=== PATIENT | female | born 1965 | race Caucasian/White ===

== ENCOUNTER → 2016-04-19 | Outpatient (CLI) | payer BC ==
--- NOTE | 2016-04-19 09:45 | MM ---
Reason for exam: screening (asymptomatic). Last mammogram was performed 1 year and 3 months ago. History: Patient had first child at age 35. Physical Findings: A clinical breast exam by your physician is recommended on an annual basis and results should be correlated with mammographic findings. MG Screening Mammo w CAD Bilateral CC and MLO view(s) were taken. Prior study comparison: January 13, 2015, bilateral MG 3d diag mammo w/cad SVETLANA. December 05, 2011, bilateral digital screening mammo w/CAD. There are scattered fibroglandular densities. No significant changes when compared with prior studies. Finding: There are typically benign calcifications in the right breast. There is a chronic nodularity in the right breast. ASSESSMENT: Benign, BI-RAD 2 RECOMMENDATION: Routine screening mammogram of both breasts in 1 year.
--- NOTE | 2016-04-19 09:54 | US ---
EXAMINATION TYPE: US pelvic complete DATE OF EXAM: 04/19/2016 9:24 AM COMPARISON: US on PACS CLINICAL HISTORY: R10.2 Pelvic Pain. Patient stated only has pelvic pain with intercourse; ; prio r endometriosis with surgery for DX; x 1 TECHNIQUE: Transabdominal (TA) Date of LMP: 03/13/2016 EXAM MEASUREMENTS: Uterus: 6.6 x 4.3 x 3.1 cm Endometrial Stripe: 0.4 cm Right Ovary: 2.3 x 1.5 x 1.5 cm Left Ovary: 2.3 x 1.9 x 1.2 cm Findings: 1. Uterus: Anteverted no evidence for uterine mass. 2. Endometrium: thickness is wnl for day 37 LMP 3. Right Ovary: wnl 4. Left Ovary: wnl Color Flow is present in bilateral ovary 5. Bilateral Adnexa: wnl 6. Posterior cul-de-sac: wnl IMPRESSION: Unremarkable study.
== END | disposition home or self-care (01) ==
LOC: RADUSWWP 09:02
PROVIDERS: ATTEND Obstetrics & Gynecology
DX: Z12.31 Encounter for screening mammogram for malignant neoplasm of breast (principal); R10.2 Pelvic and perineal pain
CPT/HCPCS: 76856; G0202

== ENCOUNTER → 2017-09-19 | Outpatient (CLI) | payer BC ==
--- NOTE | 2017-09-19 12:31 | MM ---
Reason for exam: screening (asymptomatic). Last mammogram was performed 1 year and 5 months ago. History: Patient had first child at age 35. Physical Findings: A clinical breast exam by your physician is recommended on an annual basis and results should be correlated with mammographic findings. MG Screening Mammo w CAD Bilateral CC and MLO view(s) were taken. Prior study comparison: April 19, 2016, bilateral MG screening mammo w CAD. January 13, 2015, bilateral MG 3d diag mammo w/cad SVETLANA. There are scattered fibroglandular densities. There is chronic nodularity in the right breast. Possible lobulated nodule, not seen prior to 2016, right breast CC view just lateral to the retroareolar plane. ASSESSMENT: Incomplete: need additional imaging evaluation, BI-RAD 0 RECOMMENDATION: Special view mammogram of the right breast. If lesion persists on supplemental views, image directed ultrasound is recommended. [facility] will attempt to contact patient to return for supplemental views and ultrasound if indicated.
== END | disposition home or self-care (01) ==
LOC: RADMAMWWP 07:09
PROVIDERS: ATTEND Obstetrics & Gynecology
DX: Z12.31 Encounter for screening mammogram for malignant neoplasm of breast (principal)
CPT/HCPCS: 77067

== ENCOUNTER → 2017-10-08 | Outpatient (CLI) | payer BC ==
--- NOTE | 2017-10-09 11:02 | MM ---
Reason for exam: additional evaluation requested from abnormal screening. Last mammogram was performed 1 month ago. History: Patient had first child at age 35. Physical Findings: Nurse did not find any significant physical abnormalities on exam. MG Work Up Mamm w CAD RT CC and MLO view(s) were taken of the right breast. Prior study comparison: September 19, 2017, bilateral MG screening mammo w CAD. April 19, 2016, bilateral MG screening mammo w CAD. Finding: There is a 6 mm circumscribed round mass in the slight lower outer quadrant, anterior position of the right breast, does not completely go away on additional views. These results were verbally communicated with the patient and result sheet given to the patient on 10/08/17. ASSESSMENT: Incomplete: need additional imaging evaluation, BI-RAD 0 RECOMMENDATION: Ultrasound of the right breast.
--- NOTE | 2017-10-09 11:05 | USB ---
Reason for exam: additional evaluation requested from abnormal screening. History: Patient had first child at age 35. US Breast Workup Limited RT Right limited breast ultrasound including focal area of concern, retroareolar and axilla demonstrates a 7 x 4 x 5mm lobular, solid, hypoechoic, suspicious lesion at 8 o'clock for which a biopsy is recommended and a 3 x 2 x 3mm oval, cystic, benign lesion at 9 o'clock. Scanned 6-9 o'clock and axilla. No axillary lymphadenopathy. These results were verbally communicated with the patient and result sheet given to the patient on 10/08/17. ASSESSMENT: Suspicious, BI-RAD 4 RECOMMENDATION: Surgical consultation and ultrasound core biopsy of the right breast. Called Dr. Gar with mammographic findings and has scheduled an appointment for the patient for 10/14/17 at 12:[address] Harp. PRELIMINARY REPORT CALLED AND FAXED TO DR. HARP ON 10/09/17.
== END | disposition home or self-care (01) ==
LOC: RADMAMWWP 15:34
PROVIDERS: ATTEND Obstetrics & Gynecology
DX: R92.8 Other abnormal and inconclusive findings on diagnostic imaging of breast (principal)
CPT/HCPCS: 77065

== ENCOUNTER → 2017-10-16 | Day surgery (SDC) | payer BC ==
[2017-10-16 12:19] VITALS: RESP 12; TEMP 98.7
[2017-10-16 14:10] VITALS: BP 139/90; PULSE 72
--- NOTE | 2017-10-16 16:08 | USB ---
EXAMINATION TYPE: US biopsy breast VAD RT DATE OF EXAM: 10/16/2017 CLINICAL HISTORY: R92.8 Abn mammo. Abnormal right breast ultrasound TECHNIQUE: Ultrasound guided core biopsy of right breast. COMPARISON: Ultrasound 10/08/2017, mammogram 10/08/2017 FINDINGS: The procedure of ultrasound guided core biopsy was explained to the patient. Benefits, alt ernatives, and risks were discussed. Specific discussion regarding risk of bleeding, vacuum-assisted versus nonvacuum assisted devices and alternatives were discussed. All questions were answered. An i nformed consent was then obtained. Timeout was performed. The patient was placed in supine positioning for imaging and for the procedure. The overlying skin w as prepped and draped in usual sterile fashion. Lidocaine with epinephrine buffered with bicarbonate was used as anesthetic into the skin and subcutaneous tissue up to area of concern in the right [address]. A single bryan was made with surgical scalpel. Under ultrasound guidance, a 12-gauge vacuum assisted biopsy gun device was used to obtain [address]. The ultrasound lesion appeared to be completely resected images and additional biopsies were no t performed. Following this, a biopsy clip was left in biopsy site. The patient tolerated the procedure well without any immediate complication. Patient was transferred to mammography for postprocedure mammogram. 2 images were obtained. The core marker is in the expect ed region for the ultrasound-guided core biopsy. This appears to correspond to an area within the rig ht breast on mammography as well. The patient was kept in the radiology department for short stay after the procedure and then discharg ed home in stable condition. IMPRESSION: Successful vacuum assisted ultrasound-guided core biopsy right breast. Recommendations: 1. Recommendations are pending pathology results.
== END | disposition home or self-care (01) ==
LOC: RADUSWWP 11:57
PROVIDERS: ATTEND Surgery
DX: N60.81 Other benign mammary dysplasias of right breast (principal); Z88.1 Allergy status to other antibiotic agents
CPT/HCPCS: 88305; 77065; 19083; A4648

== ENCOUNTER → 2018-04-24 | Outpatient (CLI) | payer BC ==
--- NOTE | 2018-04-25 11:45 | USB ---
Reason for exam: follow-up at short interval from prior study. History: Patient had first child at age 35. Benign US biopsy breast VAD RT of the right breast, October 16, 2017. Physical Findings: Nurse did not find any significant physical abnormalities on exam. US Breast RT Right complete breast ultrasound includes all four quadrants, the retroareolar region and axilla. Finding demonstrates a 0.3 x 0.3 x 0.2cm oval, hypoechoic lesion too small to characterize at 5 o'clock, a 0.4 x 0.2 x 0.4cm oval, cystic cluster at 8 o'clock and a 0.9 x 0.6 x 0.6cm oval, irregular, hypoechoic lesion with clip at 8 o'clock. These results were verbally communicated with the patient and result sheet given to the patient on 04/24/18. ASSESSMENT: Benign, BI-RAD 2 RECOMMENDATION: Return to routine screening mammogram schedule for both breasts. Back on schedule.
== END | disposition home or self-care (01) ==
LOC: RADUSWWP 08:16
PROVIDERS: ATTEND Obstetrics & Gynecology
DX: R92.8 Other abnormal and inconclusive findings on diagnostic imaging of breast (principal)

== ENCOUNTER → 2018-10-16 | Outpatient (CLI) | payer BC ==
--- NOTE | 2018-10-16 10:18 | MM ---
Reason for exam: screening (asymptomatic). Last mammogram was performed 1 year ago. History: Patient had first child at age 35. Benign US biopsy breast VAD RT of the right breast, October 16, 2017. Physical Findings: A clinical breast exam by your physician is recommended on an annual basis and results should be correlated with mammographic findings. MG Screening Mammo w CAD Bilateral CC and MLO view(s) were taken. Prior study comparison: October 16, 2017, right breast MG diagnostic mammo RT wo CAD. October 08, 2017, right breast MG work up mamm w CAD RT. The breast tissue is heterogeneously dense. This may lower the sensitivity of mammography. Benign appearing bilateral calcifications. No suspicious abnormality. Right biopsy marker. No significant changes when compared with prior studies. ASSESSMENT: Benign, BI-RAD 2 RECOMMENDATION: Routine screening mammogram of both breasts in 1 year.
== END | disposition home or self-care (01) ==
LOC: RADMAMWWP 07:10
PROVIDERS: ATTEND Obstetrics & Gynecology
DX: Z12.31 Encounter for screening mammogram for malignant neoplasm of breast (principal)
CPT/HCPCS: 77067

== ENCOUNTER 2019-04-17 07:14 | Day surgery (SDC) | payer BC ==
[2019-04-15 18:08] VITALS: BMI 26.6
[~2019-04-17 07:14] MED LIST: LACTATED RINGERS 1,000 ML IV SCH; LIDOCAINE 1% (10MG/ML) FOR IV START INTRADERMA PRN
[2019-04-17 07:28] VITALS: TEMP 97.4
[2019-04-17 07:42] LABS: Glucose,Whole Blood 139 mg/dL (75-99)
[2019-04-17] MEDS ORDERED: PROPOFOL 10 MG/ML 20 ML VIAL IV ONE (08:25)
--- NOTE | 2019-04-17 08:42 | P.PCN ---
Date of Procedure: 04/17/19 Procedure(s) Performed: BRIEF HISTORY: Patient is a 54-year-old pleasant white female scheduled for an elective colonoscopy as a part of screening for colorectal neoplasia. PROCEDURE PERFORMED: Colonoscopy. PREOPERATIVE DIAGNOSIS: Screening for colon cancer. IV sedation per Anesthesia. PROCEDURE: After informed consent was obtained, the patient, was brought into the endoscopy unit. IV sedation was administered by Anesthesia under continuous monitoring. Digital rectal examination was normal. Initially the Olympus CF-160 flexible video colonoscope was then inserted in the rectum, gradually advanced into the cecum without any difficulty. Careful examination was performed as the scope was gradually being withdrawn. Ileocecal valve and the appendiceal orifice were visualized and appeared normal. Prep was excellent. Mucosa of the cecum, ascending colon, transverse colon, descending colon, sigmoid colon, and rectum appeared normal. Retroflexion was performed in the rectum and no lesions were seen. scattered sigmoid diverticulosis.The patient tolerated the procedure well. IMPRESSION: Normal-appearing colon from rectum to cecum with no evidence of colorectal neoplasia. Scattered sigmoid diverticulosis. RECOMMENDATIONS: Findings of this examination were discussed with the patient as well as a family. She was advised to have a repeat screening colonoscopy in 10 years. 54
[2019-04-17 09:02] VITALS: BP 111/72; PULSE 61; RESP 18
== END 2019-04-17 09:24 | disposition home or self-care (01) ==
LOC: ORWHC2ENDO 07:14
PROVIDERS: ATTEND Internal Medicine Gastroenterology
DX: Z12.11 Encounter for screening for malignant neoplasm of colon (principal); K57.30 Diverticulosis of large intestine without perforation or abscess without bleeding; J45.909 Unspecified asthma, uncomplicated; E11.9 Type 2 diabetes mellitus without complications; Z87.19 Personal history of other diseases of the digestive system; Z79.1 Long term (current) use of non-steroidal anti-inflammatories (NSAID); Z79.899 Other long term (current) drug therapy; Z88.1 Allergy status to other antibiotic agents; Z79.51 Long term (current) use of inhaled steroids
CPT/HCPCS: 81025; J2704; G0121; 45378

== ENCOUNTER → 2019-10-22 | Outpatient (CLI) | payer BC ==
--- NOTE | 2019-10-23 15:02 | MM ---
Reason for exam: screening (asymptomatic). Last mammogram was performed 1 year ago. History: Patient had first child at age 35. Benign US biopsy breast VAD RT of the right breast, October 16, 2017. Physical Findings: A clinical breast exam by your physician is recommended on an annual basis and results should be correlated with mammographic findings. MG Screening Mammo w CAD Bilateral CC and MLO view(s) were taken. Prior study comparison: October 16, 2018, bilateral MG screening mammo w CAD. October 16, 2017, right breast MG diagnostic mammo RT wo CAD. There are scattered fibroglandular densities. Previous mammotome biopsy in the right breast. ASSESSMENT: Benign, BI-RAD 2 RECOMMENDATION: Routine screening mammogram of both breasts in 1 year.
== END | disposition home or self-care (01) ==
LOC: RADMAMWWP 07:09
PROVIDERS: ATTEND Obstetrics & Gynecology
DX: Z12.31 Encounter for screening mammogram for malignant neoplasm of breast (principal)
CPT/HCPCS: 77067

== ENCOUNTER → 2021-04-04 | Outpatient (CLI) | payer BC ==
--- NOTE | 2021-04-04 13:33 | MR ---
EXAMINATION TYPE: MR shoulder LT wo con DATE OF EXAM: 04/04/2021 COMPARISON: None HISTORY: 56-year-old female M25.512, Left shoulder pain TECHNIQUE: Multiplanar, multisequence imaging of the left shoulder is performed without contrast. FINDINGS: There is some increased intrasubstance signal within the intracapsular portion of the long head bicep s tendon suggesting tendinosis. The intracapsular portion remains appropriately situated along the bi cipital groove. The subscapularis tendon is intact. Moderate to severe degenerative change at the acromioclavicular joint with joint space narrowing, hyp ertrophic spurring, capsular swelling, and mild periarticular edema. Inferior spurring encroaches ont o the subacromial space but does not have significant mass effect onto the underlying rotator cuff. Heterogeneous signal in supraspinatus tendon. The anterior to mid fibers are very thin with some volu me loss measuring 1.5 cm long and 1.6 cm AP. No full-thickness tear is seen. Trace fluid within the subacromial/subdeltoid bursa. The infraspinatus tendon is intact. No atrophy of the rotator cuff musculature. Physiologic glenohumeral joint fluid. There is a through thickness defect along the anterior superior quadrant involving the labral chondral junction likely normal variation with a sublabral foramen. Th e humeral joint otherwise appears intact. No Hill-Sachs deformity or os acromiale. No suspicious bone marrow replacement. IMPRESSION: 1. Supraspinatus tendinosis. The anterior to mid fibers are very thin suggesting a partial-thickness tear measuring 1.5 x 1.6 cm. No full-thickness rotator cuff tear or muscle atrophy. 2. Moderate to severe AC joint OA. 3. Mild intracapsular long head biceps tendinosis.
== END | disposition home or self-care (01) ==
LOC: RADMRIMAIN 10:58
PROVIDERS: ATTEND Orthopaedic Surgery
DX: M19.012 Primary osteoarthritis, left shoulder (principal); M67.814 Other specified disorders of tendon, left shoulder

== ENCOUNTER → 2021-04-28 | Outpatient (CLI) | payer BC ==
[2021-04-28 19:48] LABS: Basophils # (A) 0.09 X 10*3/uL (0.00-0.10); Basophils % (A) 1.1 %; Eosinophils # (A) 0.26 X 10*3/uL (0.04-0.35); Eosinophils % (A) 3.1 %; HCT 45.1 % (37.2-46.3); HGB 14.3 g/dL (12.0-15.0); Lymphocytes # (A) 2.97 X 10*3/uL (0.90-5.00); Lymphocytes % (A) 35.8 %; MCH 27.9 pg (27.0-32.0); MCHC 31.7 g/dL (32.0-37.0); MCV 87.9 fL (80.0-97.0); Mean Platelet Volume 11.4 fL (9.5-12.2); Monocytes # (A) 0.54 X 10*3/uL (0.20-1.00); Monocytes % (A) 6.5 %; Neutrophils # (A) 4.41 X 10*3/uL (1.80-7.70); Neutrophils % (A) 53.3 %; Platelet Count 312 X 10*3/uL (140-440); RBC 5.13 X 10*6/uL (4.10-5.20); RDW 12.4 % (11.5-14.5); WBC 8.29 X 10*3/uL (4.50-10.00)
[2021-04-28 19:55] LABS: Anion Gap 12.9 mmol/L (10.00-18.00); Carbon Dioxide 23.1 mmol/L (20.0-27.5); Potassium 4.1 mmol/L (3.5-5.5)
== END | disposition home or self-care (01) ==
LOC: LABPAT 12:36
PROVIDERS: ATTEND Orthopaedic Surgery
DX: Z01.818 Encounter for other preprocedural examination (principal); M75.41 Impingement syndrome of right shoulder
CPT/HCPCS: 80051; 85025; 93005

== ENCOUNTER → 2021-05-01 | Outpatient (CLI) | payer BC ==
--- NOTE | 2021-05-01 14:10 | MR ---
EXAMINATION TYPE: MR shoulder RT wo con DATE OF EXAM: 05/01/2021 COMPARISON: None HISTORY: 56-year-old female M25.511, Right shoulder pain TECHNIQUE: Multiplanar, multisequence imaging of the right shoulder is performed without contrast. FINDINGS: Long biceps tendon appears intact and appropriately particularly along the bicipital groove . Mild tenosynovial fluid is noted. Heterogeneity of the subscapularis tendon without discrete tear. There is moderate to severe degenerative joint space narrowing with marginal spurring and capsular hy pertrophy as well as joint effusion at the acromial clavicular joint. No significant mass effect on t he underlying myotendinous junction of the supraspinatus. There is trace fluid within the subacromial bursa. There is mild thickening of the coracohumeral liga ment up to 5 mm. No abnormal thickening of the axillary recess or sukumar soft tissue replacement in th e rotator cuff interval. Bursal sided fraying of the supraspinatus tendon. Additional deeper articular sided tear of the mid t o posterior supraspinatus tendon fibers measuring 8 mm x 8 mm, refer to coronal image 12 and sagittal image 21. No discrete full-thickness extension is identified. Infraspinatus tendon appears intact. No atrophy of the rotator cuff musculature. The glenohumeral joint appears intact. Possible subtle tear of the superior aspect of the posterior l abrum, reference axial image 20. No paralabral cyst. No significant glenohumeral joint effusion. No Hill-Sachs deformity or os acromiale. Patchy red marrow is present and can be seen in setting of anemia, obesity, smoking, chronic disease. IMPRESSION: 1. Rotator cuff tendinosis with some bursal sided fraying of the supraspinatus tendon. 2. In addition, there is a deep articular sided tear of the mid to posterior supraspinatus tendon (8 x 8 mm). No full-thickness extension is identified. 3. Some thickening of the coracohumeral ligament is nonspecific. Consider a mild biceps sprain. 4. Moderate to severe AC joint OA. By MRI, no appreciable impingement onto the underlying cuff. Corre late for any pain with dynamic maneuvers. 5. Unable to exclude a tiny tear of the superior aspect of the posterior labrum.
== END | disposition home or self-care (01) ==
LOC: RADMRIMAIN 11:02
PROVIDERS: ATTEND Orthopaedic Surgery
DX: M19.011 Primary osteoarthritis, right shoulder (principal); M75.111 Incomplete rotator cuff tear or rupture of right shoulder, not specified as traumatic; M67.813 Other specified disorders of tendon, right shoulder; M71.811 Other specified bursopathies, right shoulder

== ENCOUNTER 2021-05-11 05:47 | Day surgery (SDC) | payer BC ==
[2021-05-09 16:05] VITALS: BMI 28.3
--- NOTE | 2021-05-10 15:48 | HP ---
HISTORY AND PHYSICAL DATE OF SURGERY: 05/11/2021 Alysa Alcazar is a 56-year-old patient seen with progressive left shoulder pain. We discussed options for treatment. She elected to proceed with left shoulder arthroscopy. Consent was obtained. PAST MEDICAL HISTORY: Asthma, [id number] diabetes. PAST SURGICAL HISTORY: section, tonsillectomy. DAILY MEDICATIONS: Metformin. ALLERGIES: ERYTHROMYCIN. SOCIAL HISTORY: She denies current tobacco use. PHYSICAL EVALUATION OF THE LEFT SHOULDER: Flexion is 90 degrees, abduction 70 degrees, external rotation zero degrees. Tenderness along the anterolateral acromion and rotator cuff insertion. Impingement is positive at 70. Drop-arm sign is positive. Cross-body adduction sign is positive. Distal neurovascular exam is intact. Radiographs of the left shoulder: Type 2 acromion, severe osteoarthritis of the acromioclavicular joint and cystic appearance of the tuberosity. MRI left shoulder: Severe osteoarthritis of the acromioclavicular joint with partial rotator cuff tear. IMPRESSION: 1. Left shoulder impingement with partial rotator cuff tear. 2. Left shoulder acromioclavicular joint osteoarthritis. PLAN: Left shoulder arthroscopy with subacromial decompression, Alfonso procedure, possible arthroscopic rotator cuff repair and debridement. MMODL / IJN: [id number] /
[2021-05-11] MEDS ORDERED: LIDOCAINE 1% (10MG/ML) FOR IV START INTRADERMA PRN (05:59)
[2021-05-11] MEDS ORDERED: LACTATED RINGERS 1,000 ML IV SCH (05:59)
[2021-05-11] MEDS ORDERED: ONDANSETRON 4 MG/2 ML VIAL IVP ONE (05:59)
[2021-05-11] MEDS ORDERED: DEXAMETHASONE SOD PHOSPHATE 4 MG/ML 1 ML VIAL IV ONE (05:59)
[2021-05-11] MEDS ORDERED: MIDAZOLAM 2 MG/2 ML VIAL IV PRN (05:59)
[2021-05-11 06:48] LABS: Glucose,Whole Blood 134 mg/dL (75-99)
[2021-05-11] MEDS ORDERED: HYDROmorphone 0.5 MG/0.5 ML SYRINGE IVP PRN (07:00)
[2021-05-11] MEDS ORDERED: DEXAMETHASONE SOD PHOSPHATE 4 MG/ML 1 ML VIAL ONE (07:55)
[2021-05-11] MEDS ORDERED: LIDOCAINE 1% INJ 10MG/ML (20 ML MDV) ONE (07:55)
[2021-05-11] MEDS ORDERED: fentaNYL (PF) 50 MCG/ML 2 ML AMP ONE (07:55)
[2021-05-11] MEDS ORDERED: NEOSTIGMINE 1 MG/ML 10 ML VIAL ONE (07:55)
[2021-05-11] MEDS ORDERED: ROPIVACAINE 5 MG/ML 30 ML VIAL ONE (07:55)
[2021-05-11] MEDS ORDERED: MIDAZOLAM 2 MG/2 ML VIAL ONE (07:55)
[2021-05-11] MEDS ORDERED: ROCURONIUM 10 MG/ML (5 ML VIAL) IV ONE (07:55)
[2021-05-11] MEDS ORDERED: GLYCOPYRROLATE 0.2 MG/ML 2 ML VIAL ONE (07:55)
[2021-05-11] MEDS ORDERED: SUCCINYLCHOLINE CHLORIDE 100 MG/5 ML SYR IV ONE (07:55)
[2021-05-11] MEDS ORDERED: PROPOFOL 10 MG/ML 20 ML VIAL IV ONE (07:55)
--- NOTE | 2021-05-11 09:31 | P.OP ---
Date of Procedure: 05/11/21 Preoperative Diagnosis: Left shoulder impingement Postoperative Diagnosis: 1. Left shoulder rotator cuff tear 2. Left shoulder impingement 3. Left shoulder adhesions Procedure(s) Performed: 1. Left shoulder arthroscopic rotator cuff repair 2. Left shoulder arthroscopic subacromial decompression 3. Left shoulder arthroscopic lysis of adhesions Implants: 15.5 Arthrex swivel lock anchor Anesthesia: GETA, regional (Interscalene block) Surgeon: Rodrick Cancino Hemodialysis Patient Care Specialist #1: Urbano Shrestha Estimated Blood Loss (ml): 11 Pathology: none sent Condition: stable Disposition: PACU Indications for Procedure: 56-year-old patient seen with progressive left shoulder pain. After having treatment options discussed, she elected to proceed with arthroscopy. Operative Findings: Seen description of procedure Description of Procedure: Patient underwent an interscalene block by department of anesthesia. The patient was then taken to the operative suite. The patient underwent a general anesthetic by the department of anesthesia. The patient was placed into a lateral position and secured. There was appropriate padding of the bony prominence. Left shoulder was then prepped and draped in normal sterile orthopedic fashion. We placed the extremity in 10 pounds of longitudinal traction. A posterior incision was now made for a posterior working portal site. The trocar and cannula were inserted into the glenohumeral joint. Arthroscopy was initiated. Spinal needle was now inserted anteriorly, to ascertain the anterior working portal site. An incision was now made in that area, a trocar was inserted followed by a probe. There was some mild superficial fraying of the anterior labrum. There was abundant adhesions noted along the anterior superior aspect of the shoulder. The labrum was stable. There were grade 1 chondromalacia changes diffusely about the shoulder joint. The biceps tendon and anchor were both stable. I debrided out the superficial labral tear with a motorized shaver. I did perform a limited lysis of adhesions. At this point instruments removed from glenohumeral joint. Utilizing the posterior working portal site, the trocar and cannula were inserted into the subacromial space. Arthroscopy initiated. I made an incision 2 fingerbreadths lateral to the acromion. I introduced my trocar followed by my ArthroCare ablator. I now began ablating thick subacromial bursal tissue, which exposed the undersurface of the anterior acromion. There was diminished subacromial space. There was a very prominent anterior acromion. A motorized bur was introduced and a subacromial decompression was performed. I also excised some osteophytes off the inferior aspect of the distal clavicle. The AC joint was visualized and noted to be fairly moderately arthritic. I did not think enough toward a Alfonso procedure. I turned my attention to the rotator cuff tendon. There was a full-thickness perforation along the distal supraspinatus measuring about 1 cm. I debrided the margins getting down to stable tendon tissue. The defect measured 1.5 cm but it was freely mobile over the footprint. I abraded the footprint with a motorized bur. I passed 2 everted mattress sutures through good bites of rotator cuff tendon. I punched along the footprint area for insertion of an anchor. All 4 limbs of suture were now passed through the eyelet of a 5.5 Arthrex swivel lock anchor. I placed the eyelet into the pre-punch hole. I held that in position while Willard MAGALLANES tensioned all 4 suture limbs and deployed anchor with good fixation noted. All residual suture limbs were now clipped. We had good compression of the tendon along the entire footprint. Instruments now removed from the portal sites. All portal sites were approximated with nylon suture. Sterile dressings were applied followed by a shoulder sling. Urbano MAGALLANES assisted in this complex case. The patient was awakened, transferred to a bed, and taken to recovery in stable condition.
[2021-05-11 09:34] VITALS: TEMP 97
[2021-05-11 09:48] LABS: Glucose,Whole Blood 162 mg/dL (75-99)
[2021-05-11 10:34] VITALS: RESP 16
[2021-05-11] MEDS ORDERED: HYDROcodone/APAP 7.5-325MG 1 EACH TAB ONE (10:44)
[2021-05-11] MEDS ORDERED: HYDROcodone/APAP 7.5-325MG 1 EACH TAB PO ONE (10:46)
[2021-05-11 11:02] VITALS: BP 125/74; PULSE 84
--- NOTE | 2021-05-12 06:21 | P.ANPRN ---
Procedure Note - Anesthesia - Nerve Block Performed Left Interscalene Single Time Out Performed: Yes Date of Procedure: 05/11/21 Procedure Start Time: Procedure Stop Time: Location of Patient: PreOp Indication: Acute Post-Operative Pain, Requested by Surgeon Sedation Type: Sedate with meaningful contact maintained Preparation: Sterile Prep Position: Supine Needle Types: Pajunk Needle Gauge: 21 Ultrasound used to visualize needle placement: Yes Ultrasound used to observe medication spread: Yes Blood Aspirated: No Pain Paresthesia on Injection Noted: No Resistance on Injection: Normal Image Stored and Saved: Yes Events: Uneventful and Well Tolerated (ropi .5% 20cc plus dexamethasone 4mg)
== END 2021-05-11 11:26 | disposition home or self-care (01) ==
LOC: OR 05:47
PROVIDERS: ATTEND Orthopaedic Surgery
DX: M75.102 Unspecified rotator cuff tear or rupture of left shoulder, not specified as traumatic (principal); M25.812 Other specified joint disorders, left shoulder; M75.02 Adhesive capsulitis of left shoulder; E11.9 Type 2 diabetes mellitus without complications; J45.909 Unspecified asthma, uncomplicated; Z98.891 History of uterine scar from previous surgery; Z98.890 Other specified postprocedural states; Z90.49 Acquired absence of other specified parts of digestive tract; Z79.84 Long term (current) use of oral hypoglycemic drugs; Z88.1 Allergy status to other antibiotic agents
CPT/HCPCS: 64415; 76942; 29826; 29827; C1713; C1894; J2250; J1100; J2710; J2405; J0690; J2001; J3010; J2795; J0330; J2704; J1170

== ENCOUNTER 2021-08-24 07:16 | Day surgery (SDC) | payer BC ==
[2021-08-22 15:44] VITALS: BMI 27.6
--- NOTE | 2021-08-23 14:29 | HP ---
HISTORY AND PHYSICAL REASON FOR ADMISSION: Surgery 08/24/2021 HISTORY OF PRESENT ILLNESS: Alysa Alcazar is a 56-year-old patient seen with progressive right shoulder pain. We discussed options for treatment. She elected to proceed with right shoulder arthroscopy. Consent was obtained. PAST MEDICAL HISTORY: [id number] diabetes, asthma. PAST SURGICAL HISTORY: section, left shoulder arthroscopy, tonsillectomy. DAILY MEDICATIONS: Metformin, ibuprofen. ALLERGIES: ERYTHROMYCIN. SOCIAL HISTORY: She denies tobacco use. PHYSICAL EVALUATION OF THE RIGHT SHOULDER: Flexion is 90 degrees, abduction is 80 degrees. External rotation 0, tenderness along the anterior lateral acromion rotator cuff insertion site. Impingement positive 80 degrees. Drop-arm sign is positive. Distal neurovascular exam is intact. RADIOGRAPHS: Radiographs of the right shoulder revealed a type 2 acromion evidence for acromioclavicular joint osteoarthritis and cystic changes of the tuberosity. MRI right shoulder partial rotator cuff tear, acromioclavicular joint osteoarthritis. IMPRESSION: 1. Right shoulder impingement with partial rotator cuff tear. 2. Right shoulder acromioclavicular joint osteoarthritis. 3. [id number]-opcncdevg diabetes. PLAN: Right shoulder arthroscopy, subacromial decompression, Alfonso procedure, possible arthroscopic rotator cuff repair and debridement. MMODL / IJN: [id number] /
[~2021-08-24 07:16] MED LIST changes: +DEXAMETHASONE SOD PHOSPHATE 4 MG/ML 1 ML VIAL IV ONE; +HYDROmorphone 0.5 MG/0.5 ML SYRINGE IVP PRN; -LIDOCAINE 1% (10MG/ML) FOR IV START INTRADERMA PRN; +ONDANSETRON 4 MG/2 ML VIAL IVP ONE
[2021-08-24 08:06] LABS: Glucose,Whole Blood 125 mg/dL (75-99)
[2021-08-24] MEDS ORDERED: MIDAZOLAM 2 MG/2 ML VIAL IVP ONE (08:36)
[2021-08-24 08:48] VITALS: RESP 16
[2021-08-24] MEDS ORDERED: PROPOFOL 10 MG/ML 20 ML VIAL IV ONE (09:23)
[2021-08-24] MEDS ORDERED: fentaNYL (PF) 50 MCG/ML 2 ML AMP ONE (09:23)
[2021-08-24] MEDS ORDERED: DEXAMETHASONE SOD PHOSPHATE 4 MG/ML 1 ML VIAL ONE (09:23)
[2021-08-24] MEDS ORDERED: SUCCINYLCHOLINE CHLORIDE 100 MG/5 ML SYR IV ONE (09:23)
[2021-08-24] MEDS ORDERED: LIDOCAINE 2% INJ 20 MG/ML (2 ML VIAL) ONE (09:23)
[2021-08-24] MEDS ORDERED: ROPIVACAINE 5 MG/ML 30 ML VIAL ONE (09:23)
[2021-08-24] MEDS ORDERED: MIDAZOLAM 2 MG/2 ML VIAL ONE (09:23)
--- NOTE | 2021-08-24 10:44 | P.OP ---
Date of Procedure: 08/24/21 Preoperative Diagnosis: Right shoulder impingement Postoperative Diagnosis: 1. Right shoulder rotator cuff tear 2. Right shoulder impingement 3. Right shoulder partial long head biceps tendon tear 4. Right shoulder adhesions Procedure(s) Performed: 1. Right shoulder arthroscopic rotator cuff repair 2. Right shoulder arthroscopic subacromial decompression 3. Right shoulder arthroscopic biceps tenotomy Implants: 15.5 Arthrex swivel lock anchor Anesthesia: GETA, regional (Interscalene block) Surgeon: Rodrick Cancino Electrolog Operator #1: Urbano Shrestha Estimated Blood Loss (ml): 6 Pathology: none sent Condition: stable Disposition: PACU Indications for Procedure: 56-year-old patient seen with progressive right shoulder pain. After treatment options were discussed, she elected to proceed with arthroscopy. Operative Findings: see description of procedure Description of Procedure: Patient underwent an interscalene block by department of anesthesia. The min ent was then taken to the operative suite. The patient underwent a general anesthetic by the department of anesthesia. The patient was placed into a lateral position and secured. There was appropriate padding of the bony prominence. Right shoulder was then prepped and draped in normal sterile orthopedic fashion. We placed the extremity in 10 pounds of longitudinal traction. A posterior incision was now made for a posterior working portal site. The trocar and cannula were inserted into the glenohumeral joint. Arthroscopy was initiated. Spinal needle was now inserted anteriorly, to ascertain the anterior working portal site. An incision was now made in that area, a trocar was inserted followed by a probe. There was some partial tearing and hyperemia involving the long head biceps tendon. There were grade 1 chondromalacia changes of the glenohumeral joint with no tears. There was some adhesions noted throughout the glenohumeral joint. I performed an arthroscopic biceps tenotomy. I held off on lysing adhesions given the history of possible rotator cuff tear. Instruments were now removed from glenohumeral joint. Utilizing the posterior working portal site, the trocar and cannula were inserted into the subacromial space. Arthroscopy initiated. I made an incision 2 fingerbreadths lateral to the acromion. I introduced my trocar followed by my ArthroCare ablator. I now began ablating thick subacromial bursal tissue, which exposed the undersurface of the anterior acromion. There was diminished subacromial space. There was a very prominent anterior acromion. A motorized bur was introduced and a subacromial decompression was performed. I also excised some osteophytes off the inferior aspect of the distal clavicle. The AC joint was visualized and noted to be moderately arthritic, I did not think enough toward a Alfonso procedure. I turned my attention to the rotator cuff. There was significant partial tearing along the distal supraspinatus tendon. Upon probing the area noted a full-thickness perforation. I debrided the margins getting down to stable tendon tissue. I introduced my motorized bur and abraded the footprint area, getting some petechial bleeding. I now with the assistance of Willard MAGALLANES passed 2 everted mattress suture through good bites of rotator cuff tendon. I now punched hole in the footprint area for insertion of an anchor. All 4 limbs of suture were passed through the eyelet of a 5.5 Arthrex swivel lock anchor. I placed the eyelet into the pre-punch hole. I held it in position while Willard MAGALLANES tensioned all 4 suture limbs and deployed the anchor with good fixation noted. All residual suture limbs were now clipped. We had good compression of the tendon along the entire footprint. I decided ultimately not to lysing adhesions given the fact that she will be immobilized postoperatively for rotator cuff repair. Instruments now removed from the portal sites. All portal sites were approximated with nylon suture. Sterile dressings were applied followed by a shoulder sling. Urbano MAGALLANES assisted in this case. The patient was awakened, transferred to a bed, and taken to recovery in stable condition.
[2021-08-24 10:55] VITALS: TEMP 97
[2021-08-24] MEDS ORDERED: HYDROcodone/APAP 7.5-325MG 1 EACH TAB ONE (11:53)
[2021-08-24] MEDS ORDERED: HYDROcodone/APAP 7.5-325MG 1 EACH TAB PO ONE (11:55)
[2021-08-24 12:18] VITALS: BP 118/71; PULSE 79
--- NOTE | 2021-08-24 19:19 | P.ANPRN ---
Procedure Note - Anesthesia - Nerve Block Performed Right Interscalene Single Time Out Performed: Yes Date of Procedure: 08/24/21 Procedure Start Time: 08:35 Procedure Stop Time: 08:39 Location of Patient: PreOp Indication: Acute Post-Operative Pain, Requested by Surgeon Sedation Type: Sedate with meaningful contact maintained Preparation: Sterile Prep Position: Supine Needle Types: Pajunk Needle Gauge: 21 Ultrasound used to visualize needle placement: Yes Ultrasound used to observe medication spread: Yes Blood Aspirated: No Pain Paresthesia on Injection Noted: No Resistance on Injection: Normal Image Stored and Saved: Yes Events: Uneventful and Well Tolerated (ropi .5% 20cc plus dexamethasone 4mg)
== END 2021-08-24 12:46 | disposition home or self-care (01) ==
LOC: OR 07:16
PROVIDERS: ATTEND Orthopaedic Surgery
DX: M75.101 Unspecified rotator cuff tear or rupture of right shoulder, not specified as traumatic (principal); M25.811 Other specified joint disorders, right shoulder; S46.111A Strain of muscle, fascia and tendon of long head of biceps, right arm, initial encounter; X58.XXXA Exposure to other specified factors, initial encounter; M94.211 Chondromalacia, right shoulder; M75.01 Adhesive capsulitis of right shoulder; E11.9 Type 2 diabetes mellitus without complications; J45.909 Unspecified asthma, uncomplicated; Z98.891 History of uterine scar from previous surgery; Z98.890 Other specified postprocedural states; Z79.84 Long term (current) use of oral hypoglycemic drugs; Z79.51 Long term (current) use of inhaled steroids; Z79.1 Long term (current) use of non-steroidal anti-inflammatories (NSAID); Z88.1 Allergy status to other antibiotic agents
CPT/HCPCS: 64415; 76942; 29826; 29827; C1713; J2250; J1100; J2405; J0690; J3010; J2795; J0330; J2704; J2001

== ENCOUNTER 2021-10-02 08:16 | Day surgery (SDC) | payer BC ==
[2021-09-27 11:16] VITALS: BMI 27.6
--- NOTE | 2021-10-01 11:35 | HP ---
HISTORY AND PHYSICAL REASON FOR ADMISSION: Surgery scheduled for 10/02/2021 HISTORY OF PRESENT ILLNESS: Alysa Alcazar is a 56-year-old patient seen with left shoulder adhesive capsulitis. We discussed options. She elected to proceed with manipulation under anesthesia left shoulder with steroid injection. Consent obtained. PAST MEDICAL HISTORY: Past medical history is [id number] diabetes and asthma. PAST SURGICAL HISTORY: Left shoulder arthroscopy. MEDICATIONS: Albuterol, metformin, vitamins, ibuprofen. ALLERGIES: None. SOCIAL HISTORY: She denies tobacco use. PHYSICAL EXAMINATION: Evaluation of the left shoulder, arthroscopic portal sites appear well healed. Flexion is 90 degrees, abduction 60 degrees, external rotation is 10 degrees. Distal neurovascular exam is intact. RADIOGRAPHS: Left shoulder radiographs revealed a stable conversion to a flat anterior acromion. IMPRESSION: 1. Left shoulder adhesive capsulitis. 2. History of left shoulder arthroscopy. PLAN: Manipulation under anesthesia left shoulder with steroid injection. Surgery planned for 10/02/2021. MMODL / IJN: [id number] /
[~2021-10-02 08:16] MED LIST changes: -HYDROmorphone 0.5 MG/0.5 ML SYRINGE IVP PRN; +MIDAZOLAM 2 MG/2 ML VIAL IV PRN; +SCOPOLAMINE 1 MG/72 HR PATCH TRANSDERM ONE
[2021-10-02 08:55] VITALS: TEMP 97.1
[2021-10-02 09:07] LABS: Glucose,Whole Blood 143 mg/dL (70-110)
[2021-10-02] MEDS ORDERED: PROPOFOL 10 MG/ML 20 ML VIAL IV ONE (09:30)
[2021-10-02] MEDS ORDERED: LIDOCAINE 2% INJ 20 MG/ML (2 ML VIAL) ONE (09:30)
[2021-10-02] MEDS ORDERED: methylPREDNISolone ACETATE 80 MG/ML 1 ML VIAL IM ONE (09:36)
[2021-10-02] MEDS ORDERED: BUPIVACAINE (PF) 0.25% 30 ML VIAL MISCELLANE ONE (09:37)
--- NOTE | 2021-10-02 09:40 | P.OP ---
Date of Procedure: 10/02/21 Preoperative Diagnosis: Left shoulder adhesive capsulitis Postoperative Diagnosis: Left shoulder adhesive capsulitis Procedure(s) Performed: Manipulation under anesthesia left shoulder with steroid injection Anesthesia: MAC, local Surgeon: Rodrick Cancino Estimated Blood Loss (ml): 0 Pathology: none sent Condition: stable Disposition: PACU Indications for Procedure: 56-year-old patient seen with persistent left shoulder adhesive capsulitis. We discussed options for treatment, she elected to proceed with manipulation under anesthesia left shoulder with steroid injection. Operative Findings: See description of procedure Description of Procedure: Patient was taken to monitored anesthesia area. She underwent IV sedation by the department of anesthesia. Once sufficient anesthesia was noted I performed a manipulation of the left shoulder achieving full range of motion with audible tearing of the adhesions. The anterior aspect of the left shoulder was prepped and draped in the normal sterile orthopedic fashion. I injected a solution of 1 mL Depo-Medrol and 2 mL quarter percent plain Marcaine intra-articular under sterile technique. The shoulder was again taken through full range of motion. A sterile Band-Aid was applied. The patient was awakened having tolerated the procedure well.
[2021-10-02] MEDS: HYDROmorphone 0.5 MG/0.5 ML SYRINGE IVP PRN ×3 (09:42→10:05)
[2021-10-02] MEDS ORDERED: KETOROLAC 15 MG/ML 1 ML VIAL IVP ONE (09:51)
[2021-10-02 09:56] VITALS: RESP 18
[2021-10-02] MEDS ORDERED: ONDANSETRON 4 MG/2 ML VIAL IVP ONE (10:30)
[2021-10-02 10:56] VITALS: BP 140/91; PULSE 85
== END 2021-10-02 11:25 | disposition home or self-care (01) ==
LOC: OR 08:16
PROVIDERS: ATTEND Orthopaedic Surgery
DX: M75.02 Adhesive capsulitis of left shoulder (principal); E11.9 Type 2 diabetes mellitus without complications; J45.909 Unspecified asthma, uncomplicated; Z79.84 Long term (current) use of oral hypoglycemic drugs; Z88.3 Allergy status to other anti-infective agents; Z91.040 Latex allergy status; Z91.09 Other allergy status, other than to drugs and biological substances
CPT/HCPCS: 23700; 64450; J1040; J1100; J2405; J1885; J2704; J1170; J2001

== ENCOUNTER → 2021-11-06 | Outpatient (CLI) | payer BC ==
--- NOTE | 2021-11-06 20:08 | BD ---
EXAMINATION TYPE: Axial Bone Density DATE OF EXAM: 11/06/2021 COMPARISON: NONE CLINICAL HISTORY: 56 year old Female. ICD-10 CODE: N951 POST MENOPAUSAL SYMPTOMS Height: 62 Weight: 151.4 FRAX RISK QUESTIONS: Alcohol (3 or more units per day): no Family History (Parent hip fracture): no Glucocorticoids (More than 3mos): no (Ex: prednisone, prednisolone, methylprednisolone, dexamethasone, and hydrocortisone). History of Fracture in Adulthood: no Secondary Osteoporosis: 1. Type 1 Diabetes: no 2. Hyperthyroidism: no 3. Menopause before 45: no 4. Malnutrition: no 5. Chronic liver disease: no Rheumatoid Arthritis: no Current Tobacco Use: no RISK FACTORS HISTORY OF: Surgery to Spine/Hip(right/left)/Wrist (right/left): no Family History of Osteoporosis: yes Active: yes Diet low in dairy products/other sources of calcium: no Postmenopausal woman: yes Lost more than 2 inches in height since high school: no MEDICATIONS: Additional History: EXAM MEASUREMENTS: Bone mineral densitometry was performed using the [employer]. Bone mineral density as measured about the Lumbar spine is: ----- L1-L4(G/cm2): 1.225 T Score Values are as follows: ----- L1: 0.4 ----- L2: 0.6 ----- L3: 0.8 ----- L4: -0.4 ----- L1-L4: 0.4 Bone mineral density : baseline Bone mineral density about the R hip (g/cm2): 0.894 Bone mineral density about the L hip (g/cm2): 0.854 T Score values are as follows: -----R Neck: -1.0 -----L Neck: -1.3 -----R Total: -0.4 -----L Total: -0.7 Bone mineral density : baseline FRAX%s: The graph provided illustrates a 6.1% chance for a major osteoporotic fx and a 0.4% chance fo r the hips probability for fx in 10 years time. IMPRESSION: Osteopenia (T Score between -2.5 and -1). There is slightly increased risk of fracture and the patient may be considered for treatment. Re-Screen 2-5 years. NOTE: T-SCORE=SD OF THE YOUNG ADULT MEAN.
--- NOTE | 2021-11-07 10:47 | MM ---
Reason for Exam: Screening (asymptomatic). Last mammogram was performed 2 year(s) and 1 month(s) ago. Patient History: Menarche at age 13. First Full-Term at age 35. Late child-bearing (after 30). Postmenopausal. 10/16/2017, Benign Core Biopsy on the right side. Risk Values: Ginger 5 year model risk: 2.0%. NCI Lifetime model risk: 14.5%. Prior Study Comparison: 10/16/2017 Right Diagnostic Mammogram, [facility]. 10/16/2018 Bilateral Screening Mammogram, [facility]. 10/22/2019 Bilateral Screening Mammogram, [facility]. Tissue Density: The breast tissue is heterogeneously dense. This may lower the sensitivity of mammography. Findings: Analyzed By CAD. There is no suspicious group of microcalcifications or new suspicious mass in either breast. Overall Assessment: Negative, BI-RAD 1 Management: Screening Mammogram of both breasts in 1 year. A clinical breast exam by your physician is recommended on an annual basis and results should be correlated with mammographic findings. Electronically signed and approved by: Stan Cerna M.D. Radiologis
== END | disposition home or self-care (01) ==
LOC: RADMAMWWP 07:24
PROVIDERS: ATTEND Obstetrics & Gynecology
DX: Z12.31 Encounter for screening mammogram for malignant neoplasm of breast (principal); Z78.0 Asymptomatic menopausal state
CPT/HCPCS: 77067; 77080

== ENCOUNTER → 2021-12-28 | Outpatient (CLI) | payer BC ==
--- NOTE | 2021-12-29 04:15 | MR ---
EXAMINATION TYPE: MR shoulder LT wo con DATE OF EXAM: 12/28/2021 COMPARISON: 04/04/2021 HISTORY: Left shoulder pain and limited range of motion Multiplanar multiecho imaging of the left shoulder performed with no contrast. There is shoulder joint effusion. There is previous shoulder surgery with metal artifact at the humer al head greater tuberosity. The biceps tendon is intact. The glenoid neri appear intact. Subscapular is tendon is not well demonstrated. There is artifact on the axial images. There is narrowing of the glenohumeral joint space with spur formation. There is large defect in the supraspinatus tendon. There is partial retraction. There is spurring at the AC joint. There is minimal subacromial impingement. The infraspinatus tendon is intact. There is shoulder joint effusion. No fracture seen. No evidence of focal bone destruction. IMPRESSION: Large rotator cuff tear with partial retraction of the supraspinatus tendon. Shoulder joint effusion. No fracture seen. The supraspinatus tendon tear has progressed significantly compared to old exam. Osteoarthritis at the glenohumeral joint and AC joint without change.
== END | disposition home or self-care (01) ==
LOC: RADMRIMAIN 11:24
PROVIDERS: ATTEND Orthopaedic Surgery
DX: M19.012 Primary osteoarthritis, left shoulder (principal); M75.112 Incomplete rotator cuff tear or rupture of left shoulder, not specified as traumatic

== ENCOUNTER 2022-02-08 09:07 | Day surgery (SDC) | payer BC ==
[2022-02-06 12:26] VITALS: BMI 28.3
--- NOTE | 2022-02-07 22:49 | HP ---
HISTORY AND PHYSICAL DATE OF SURGERY: 02/08/2022. HISTORY OF PRESENT ILLNESS: Alysa Alcazar is a 56-year-old patient seen with progressive left shoulder pain. We discussed options for treatment. She elected to proceed with left shoulder arthroscopy. Consent was obtained. PAST MEDICAL HISTORY: Ihl-etccwpg-iiqbldchr diabetes, asthma. PAST SURGICAL HISTORY: section, tonsillectomy, shoulder arthroscopy. DAILY MEDICATIONS: 1. Albuterol. 2. Metformin. 3. Ibuprofen. ALLERGIES: Erythromycin. SOCIAL HISTORY: She denies tobacco use. PHYSICAL EVALUATION OF THE LEFT SHOULDER: She has previous arthroscopic well-healed portal sites. Flexion is 80 degrees, abduction is 80 degrees, external rotation is 10 degrees with weakness. Tenderness along the anterolateral acromion, rotator cuff insertion. RADIOGRAPHS: Radiographs of the left shoulder revealed a conversion to a flat anterior acromion. Left shoulder MRI revealed a rotator cuff tendon tear. IMPRESSION: 1. Left shoulder rotator cuff tear. 2. Eas-txibtvz-bmbaggfqq diabetes. 3. Asthma. PLAN: Left shoulder arthroscopy with rotator cuff repair and debridement. MMODL / IJN: [id number] /
[~2022-02-08 09:07] MED LIST changes: -MIDAZOLAM 2 MG/2 ML VIAL IV PRN; -SCOPOLAMINE 1 MG/72 HR PATCH TRANSDERM ONE
[2022-02-08] MEDS ORDERED: LIDOCAINE 1% (10MG/ML) FOR IV START INTRADERMA ONE (09:57)
[2022-02-08 10:05] LABS: Glucose,Whole Blood 132 mg/dL (70-110)
[2022-02-08] MEDS ORDERED: MIDAZOLAM 2 MG/2 ML VIAL IVP ONE (10:38)
[2022-02-08] MEDS ORDERED: fentaNYL (PF) 50 MCG/ML 2 ML AMP ONE (10:47)
[2022-02-08] MEDS ORDERED: ROPIVACAINE 5 MG/ML 30 ML VIAL ONE (10:47)
[2022-02-08] MEDS ORDERED: SUCCINYLCHOLINE CHLORIDE 200 MG/10 ML VIAL IV ONE (10:47)
[2022-02-08] MEDS ORDERED: PROPOFOL 10 MG/ML 20 ML VIAL IV ONE (10:47)
[2022-02-08] MEDS ORDERED: DEXAMETHASONE SOD PHOSPHATE 4 MG/ML 1 ML VIAL ONE (10:47)
[2022-02-08] MEDS ORDERED: LIDOCAINE 2% INJ 20 MG/ML (2 ML VIAL) ONE (10:47)
--- NOTE | 2022-02-08 12:45 | P.OP ---
Date of Procedure: 02/08/22 Preoperative Diagnosis: Left shoulder rotator cuff tear Postoperative Diagnosis: 1. Left shoulder rotator cuff tear 2. Left shoulder partial long head biceps tendon tear Procedure(s) Performed: 1. Left shoulder arthroscopic rotator cuff repair 2. Left shoulder arthroscopic biceps tenotomy Implants: 2Arthrex 4.75 swivel lock anchors 2Arthrex 5.5 swivel lock anchors Anesthesia: GETA, regional (Interscalene block) Surgeon: Rodrick Cancino Capacitor Inspector #1: Ritesh Taylor Estimated Blood Loss (ml): 11 Pathology: none sent Condition: stable Disposition: PACU Indications for Procedure: 56-year-old patient seen with progressive left shoulder pain. After treatment options were discussed, she elected to proceed with arthroscopy. Operative Findings: See description of procedure Description of Procedure: Patient underwent an interscalene block by department of anesthesia. The patient was then taken to the operative suite. The patient underwent a general anesthetic by the department of anesthesia. The patient was placed into a lateral position and secured. There was appropriate padding of the bony prominence. Left shoulder was then prepped and draped in normal sterile orthopedic fashion. We placed the extremity in 10 pounds of longitudinal traction. A posterior incision was now made for a posterior working portal site. The trocar and cannula were inserted into the glenohumeral joint. Arthroscopy was initiated. Spinal needle was now inserted anteriorly, to ascertain the anterior working portal site. An incision was now made in that area, a trocar was inserted followed by a probe. There was some partial tearing of hyperemia involving long head biceps tendon. There was some mild superficial fraying of the anterior labrum. There were grade 1/2 chondromalacia changes in the glenohumeral joint. I performed an arthroscopic biceps tenotomy. I debrided out the superficial labral tears. The residual labrum was probed and was found to be stable. Instruments now removed from the glenohumeral joint. Utilizing the posterior working portal site, the trocar and cannula were inserted into the subacromial space. Arthroscopy initiated. I made an incision 2 fingerbreadths lateral to the acromion. I introduced my trocar followed by my ArthroCare ablator. I now began ablating thick subacromial bursal tissue, which exposed the undersurface of the anterior acromion. There was evidence of previous decompression. I turned my attention to the rotator cuff tendon. We had performed a previous repair along the anterior supraspinatus which was re- torn. The tear was large extending all the way posteriorly approximately 4 cm. We had about a 4 cm rotator cuff tendon tear. There was abundant scar tissue which I debrided out and the subacromial space. I removed the residual sutures. I removed part of the residual anchor. I abraded the footprint with a motorized bur. I made an bus attendant portal site off the lateral acromion. With the assistance of Ritesh MAGALLANES now introduced 2 medial anchors with 2 sutures each. With the assistance of Ritesh MAGALLANES I passed all 8 suture limbs through good bites of rotator cuff tendon. We now punched 2 holes laterally for a lateral anchors. We crisscrossed the sutures. We started anteriorly and passed 4 limbs of suture through the eyelet of a 5.5 Arthrex swivel lock anchor. I placed the eyelet into the pre-punch hole. I held it in position while Ritesh MAGALLANES tension all 4 suture limbs and deployed the anchor with good fixation noted. We now passed the remaining 4 suture limbs through another 5.5 Arthrex swivel lock anchor. I placed into the pre-punch hole posteriorly and held in position while Ritesh MAGALLANES tension all 4 suture limbs and deployed anchor with good fixation noted.. All residual suture limbs were now clipped. We had good compression of the tendon along the entire footprint. Instruments now removed from the portal sites. All portal sites were approximated with nylon suture. Sterile dressings were applied followed by a shoulder immobilizer. Ritesh MAGALLANES assisted in this complex case. The patient was awakened, transferred to a bed, and taken to recovery in stable condition.
[2022-02-08 12:48] VITALS: TEMP 98.6
[2022-02-08] MEDS: HYDROmorphone 0.5 MG/0.5 ML SYRINGE IVP PRN ×3 (12:50→13:07)
[2022-02-08 13:02] LABS: Glucose,Whole Blood 173 mg/dL (70-110)
[2022-02-08 13:55] VITALS: RESP 18
[2022-02-08 14:31] VITALS: BP 123/74; PULSE 91
--- NOTE | 2022-02-08 20:09 | P.ANPRN ---
Procedure Note - Anesthesia - Nerve Block Performed Left Interscalene Single Time Out Performed: Yes Date of Procedure: 02/08/22 Procedure Start Time: 10:38 Procedure Stop Time: 10:43 Location of Patient: PreOp Indication: Acute Post-Operative Pain, Requested by Surgeon Sedation Type: Sedate with meaningful contact maintained Preparation: Sterile Prep Position: Supine Needle Types: Pajunk Needle Gauge: 21 Ultrasound used to visualize needle placement: Yes Ultrasound used to observe medication spread: Yes Blood Aspirated: No Pain Paresthesia on Injection Noted: No Resistance on Injection: Normal Image Stored and Saved: Yes Events: Uneventful and Well Tolerated (ropi .5% 20cc plus dexamethasone 4mg)
== END 2022-02-08 14:50 | disposition home or self-care (01) ==
LOC: OR 09:07
PROVIDERS: ATTEND Orthopaedic Surgery
DX: S46.912A Strain of unspecified muscle, fascia and tendon at shoulder and upper arm level, left arm, initial encounter (principal); M75.102 Unspecified rotator cuff tear or rupture of left shoulder, not specified as traumatic; G89.18 Other acute postprocedural pain; E11.9 Type 2 diabetes mellitus without complications; J45.909 Unspecified asthma, uncomplicated; Z79.84 Long term (current) use of oral hypoglycemic drugs; Z88.1 Allergy status to other antibiotic agents; X58.XXXA Exposure to other specified factors, initial encounter
CPT/HCPCS: 64415; 76942; 29827; 29828; C1713 ×3; J2250; J0330; J1100; J0690; J2405; J3010; J2795; J2704; J1170; J2001

== ENCOUNTER → 2022-11-07 | Outpatient (CLI) | payer BC ==
--- NOTE | 2022-11-07 09:58 | MM ---
Reason for Exam: Screening (asymptomatic). Last screening mammogram was performed 12 month(s) ago. Patient History: Menarche at age 13. First Full-Term at age 35. Late child-bearing (after 30). Postmenopausal. 10/16/2017, Benign Core Biopsy on the right side. Risk Values: Ginger 5 year model risk: 2.1%. NCI Lifetime model risk: 14.2%. Prior Study Comparison: 10/16/2018 Bilateral Screening Mammogram, [facility]. 10/22/2019 Bilateral Screening Mammogram, [facility]. 11/06/2021 Bilateral MG screening mammo w CAD, [facility]. Tissue Density: The breast tissue is heterogeneously dense. This may lower the sensitivity of mammography. Findings: Analyzed By CAD. There is no suspicious group of microcalcifications or new suspicious mass in either breast. Overall Assessment: Benign, BI-RAD 2 Management: Screening Mammogram of both breasts in 1 year. . Patient should continue monthly self-breast exams. A clinical breast exam by your physician is recommended on an annual basis. This exam should not preclude additional follow-up of suspicious palpable abnormalities. Note on Ginger scores and lifetime risk: 1. A Ginger score greater than 3% is considered moderate risk. If this is the case, consider specialist referral to assess eligibility for a risk reducing agent. 2. If overall lifetime risk for the development of breast cancer is 20% or higher, the patient may qualify for future screening with alternating mammogram and breast MRI. Electronically signed and approved by: Stan Cerna M.D. Radiologis
== END | disposition home or self-care (01) ==
LOC: RADMAMWWP 06:56
PROVIDERS: ATTEND Obstetrics & Gynecology
DX: Z12.31 Encounter for screening mammogram for malignant neoplasm of breast (principal); Z78.0 Asymptomatic menopausal state
CPT/HCPCS: 77067

== ENCOUNTER → 2024-03-31 | Outpatient (CLI) | payer BC ==
--- NOTE | 2024-03-31 12:48 | MM ---
Reason for Exam: Screening (asymptomatic). Last mammogram was performed 1 year(s) and 5 month(s) ago. Patient History: Menarche at age 13. First Full-Term at age 35. Late child-bearing (after 30). Postmenopausal. 10/16/2017, Benign Core Biopsy on the right side. Risk Values: Ginger 5 year model risk: 2.3%. NCI Lifetime model risk: 13.6%. Prior Study Comparison: 10/22/2019 Bilateral Screening Mammogram, [facility]. 11/06/2021 Bilateral MG screening mammo w CAD, [facility]. 11/07/2022 Bilateral MG screening mammo w CAD, [facility]. Tissue Density: The breasts are heterogeneously dense, which may obscure small masses. Findings: Analyzed By CAD. Right breast biopsy clip. Right breast: There is no suspicious group of microcalcifications or new suspicious mass. Benign-appearing calcifications right breast. Left breast: There is no suspicious group of microcalcifications or new suspicious mass. Overall Assessment: Benign, BI-RAD 2 Management: Screening Mammogram of both breasts in [address] [facility] will attempt to contact patient to return for supplemental views and ultrasound if indicated. Patient should continue monthly self-breast exams. A clinical breast exam by your physician is recommended on an annual basis. This exam should not preclude additional follow-up of suspicious palpable abnormalities. Note on Ginger scores and lifetime risk: 1. A Ginger score greater than 3% is considered moderate risk. If this is the case, consider specialist referral to assess eligibility for a risk reducing agent. 2. If overall lifetime risk for the development of breast cancer is 20% or higher, the patient may qualify for future screening with alternating mammogram and breast MRI. [facility], , 03/31/2024 12:44 PM. Electronically signed and approved by: Celestino Kulkarni DO
== END | disposition home or self-care (01) ==
LOC: RADMAMWWP 12:25
PROVIDERS: ATTEND Family Medicine
DX: Z12.31 Encounter for screening mammogram for malignant neoplasm of breast (principal); R92.333 Mammographic heterogeneous density, bilateral breasts; Z78.0 Asymptomatic menopausal state
CPT/HCPCS: 77067